=== PATIENT | male | born 1980 | race Caucasian/White ===

== ENCOUNTER 2016-11-20 05:08 | Emergency (ER) | payer SELFPAY ==
[~2016-11-20] VITALS: Ht 182.9 cm; Wt 90.7 kg
[2016-11-20 05:18] VITALS: BP 131/88
[2016-11-20] MEDS ORDERED: HYDROmorphone PF 1 MG/ML DISP.SYRIN IM ONE (05:45)
[2016-11-20] MEDS ORDERED: DEXAMETHASONE SOD PHOS 10 MG/ML VIAL IV ONE (05:45)
[2016-11-20] MEDS ORDERED: PENICILLIN G BENZATHINE LA 1,200,000 UNIT/2 ML DISP.SYRIN. IM ONE (05:45)
[2016-11-20] MEDS ORDERED: KETOROLAC 60 MG/2 ML VIAL. IM ONE (05:45)
[2016-11-20] MEDS ORDERED: HYDR-2758 PO (05:56)
[2016-11-20] MEDS ORDERED: NAPR500T PO (05:56)
--- NOTE | 2016-11-20 05:57 | PHYS DOC ---
Past History Past Medical History: Anxiety Past Surgical History: No Surgical History Smoking: Cigarettes, Greater than 1 pack/day Alcohol Use: None Drug Use: None Adult General Chief Complaint Chief Complaint: SORE THROAT HPI HPI Patient is a pleasant 36-year-old otherwise healthy male who presents with a sore throat that he sought on and off last week. It began as a mild sore throat with mild redness to his tonsils as according to his girlfriend he began developing white patches to his tonsils and the patches of gotten better but the patient's sore throat is still there. He notes more pain on the right than the left with no real change in voice but it does hurt to swallow he's had decreased oral intake with subjective fevers and chills secondary to pain. He admits that he's been taking Tylenol routinely over [address] pain. He denies any headache, denies anterior neck fullness, stiff neck, chest pain, or other URI symptoms like cough, runny nose. He does describe mild ear pain on the right with movement of the jaw. He denies any sick contacts, travel outside the country, or antibiotic use. He does smoke. Review of Systems Review of Systems Constitutional: Patient does complain of fevers and chills Eyes: Denies change in visual acuity, redness, or eye pain [] HENT: Denies nasal congestion or he does complain of sore throat Respiratory: Denies cough or shortness of breath [] Cardiovascular: No additional information not addressed in HPI [] GI: Denies abdominal pain, nausea, vomiting, bloody stools or diarrhea [] : Denies dysuria or hematuria [] Musculoskeletal: Denies back pain or joint pain [] Integument: Denies rash or skin lesions [] Neurologic: S1 and body aches and mild headache without weakness Endocrine: Denies polyuria or polydipsia [] Allergies Allergies Allergies Coded Allergies Type Severity Reaction Last Updated Verified No Known Drug Allergies 11/20/16 No Physical Exam Physical Exam Constitutional: Well developed, well nourished, patient not feeling well no acute distress nontoxic in appearance HENT: Normocephalic, atraumatic, bilateral external ears normal, oropharynx does demonstrates erythema of the tonsils with posterior tonsillar hypertrophy exudates clearly noted on each the tonsils. There is no significant asymmetry. He does have some reactive anterior lymphadenopathy that is tender to palpation. Eyes: PERRLA, EOMI, conjunctiva normal, no discharge. [] Neck: Normal range of motion, he does have some tenderness right greater than left with mild tonsillar hypertrophy. Cardiovascular:Heart rate regular rhythm, no murmur [] Lungs & Thorax: Bilateral breath sounds clear to auscultation [] Skin: Warm, dry, no erythema, no rash. [] Neurologic: Alert and oriented X 3, normal motor function, normal sensory function, no focal deficits noted. No change in voice. Psychologic: Affect normal, judgement normal, mood normal. [] Current Patient Data Vital Signs Vital Signs Date Time Temp Pulse Resp B/P (MAP) Pulse Ox O2 Delivery O2 Flow Rate FiO2 11/20/16 05:18 98.0 98 20 98 Room Air Lab Results Positive strep EKG EKG [] Radiology/Procedures Radiology/Procedures [] Course & Med Decision Making Course & Med Decision Making Pertinent Labs and Imaging studies reviewed. (See chart for details) reason presents with sore throat, 4/4 centor criteria with a positive strep test at the bedside Centor criteria The Centor criteria are a widely used and accepted clinical decision tool [38-40]. These criteria are: ?Tonsillar exudates ?Tender anterior cervical adenopathy ?Fever by history ?Absence of cough The likelihood of having GAS increases with the number of Centor criteria. However, the Centor criteria are most useful in identifying patients for whom neither microbiologic tests nor antimicrobial therapy are necessary. Patients with fewer than three (0 to 2) Centor criteria are unlikely to have GAS and, in general, should not receive either antibiotic treatment or diagnostic testing. [] Given his positive findings I have elected to give him IM penicillin, Toradol , Dilaudid, and Decadron. This is a positive response to medications. Doubt peritonsillar abscess at this time I will give him precautions and encouraged to follow up with his primary care doctor or here in the emergency department if symptoms do not improve. Impression: Strep positive pharyngitis Disposition: PCP follow-up with continued supportive medications include Lortab elixir, NSAIDs and fluid hydration. Dragon Disclaimer Dragon Disclaimer This chart was dictated in whole or in part using Voice Recognition software in a busy, high-work load, and often noisy Emergency Department environment. It may contain unintended and wholly unrecognized errors or omissions. Departure Departure: Impression: Primary Impression: Pharyngitis due to Streptococcus species Disposition: HOME, SELF-CARE Condition: IMPROVED Referrals: PCP,AMBERLY (PCP) Patient Instructions: Strep Throat, Viral and Bacterial Pharyngitis Additional Instructions: Please return for any new or increasing symptoms, if you have any change in her voice or feel any question concerns. Scripts Naproxen (NAPROSYN) 500 Mg Tablet 1 TAB PO BID, #20 TAB 1 Refill Prov: CORRIE AMARO MD 11/20/16 Hydrocodone Bit/Acetaminophen (HYDROCODONE-APAP 5-325 ) 1 Each Tablet 1 TAB PO PRN Q6HRS Y for PAIN for 3 Days, #12 TAB 0 Refills Prov: CORRIE AMARO MD 11/20/16 CORRIE AMARO MD Nov 20, 2016 05:57
[2016-11-20 07:31] LABS: INFLUENZA A PATIENT NEGATIVE (NEGATIVE); INFLUENZA B PATIENT NEGATIVE (NEGATIVE)
== END 2016-11-20 06:28 | disposition home or self-care (01) ==
LOC: ER 05:08
DX: J02.0 Streptococcal pharyngitis (principal); F41.9 Anxiety disorder, unspecified; F17.210 Nicotine dependence, cigarettes, uncomplicated
CPT/HCPCS: 87804; 87880; 96372; 96374; 99284; J0561; J1100; J1170; J1885